=== PATIENT | female | born 1955 | race Caucasian/White ===

== ENCOUNTER 2018-12-24 22:55 | Inpatient (IN) ==
[2018-12-24] MEDS ORDERED: NS 1000 ML 1,000 ML ONE (23:06)
[2018-12-24] MEDS ORDERED: ASPIRIN PO ONE (23:29)
[2018-12-24] MEDS ORDERED: APRESOLINE TAB 25 MG PO ONE (23:29)
[2018-12-24] MEDS ORDERED: ASPIRIN ONE (23:30)
--- NOTE | 2018-12-24 23:30 | DR.GENAD ---
HPI Time Seen Time Seen by Provider: 12/24/18 22:57 PCP Primary Care Physician: Maren SIMPSON HPI Comment HPI Comment: 63 yo CF w/ pmh htn and tobacco abuse presents w/ CP onset 1700 today. Left sided, pressure like, radiating to left neck, constant, worse w/ rom of torso, non exertional, non pleuritic, a/w diffuse posterior headache and 2 episodes of nb/nb emesis. Denies visual/ speech changes, numbness/ weakness, diaphoresis, back pain, syncope, edema, orthopnea, castro. Complaint/Symptoms Chief Complaint:: PT STATES" MY BP WAS UP AND THEN I STARTED HURTING IN MY CHEST I FELT LIKE I WAS LOSING MY BREATH." Nurses notes reviewed Nurses Notes Review: Yes Source History Provided: Patient Mode of Arrival Mode of Arrival: Ambulatory Timing Onset of Chief Complaint: 12/24/18 Severity Severity: Moderate PMH PMH Past Medical History: Yes Past Medical History: Arthritis, Asthma, COPD and Hypertension Past Surgical History: Yes Surgical History: , Hysterectomy and Ortho Surgery Family History History of Family Medical Conditions: Yes Family Medical History: Cancer Social History Does patient currently use any type of tobacco product: Yes Have you used tobacco products in the last 12 months: Yes Type of Tobacco Use: Cigarettes Does any household member use tobacco: Yes Alcohol Use: Occasionally Do you use any recreational Drugs:: No Lives With: Family Lives Where: Home infectious screening In the last 2 months have you had wt loss of >10#?: NO Have you had fever, night sweats or hemotysis?: No Have you traveled outside the country in the last 6 months?: No Isolation: Standard ROS Review of Systems Constitutional: No Symptoms Reported Eyes: No Symptoms Reported ENTM: No Symptoms Reported Respiratoy: No Symptoms Reported Cardiovascular: Chest Pain; negative Edema, Palpitations and Syncope Gastrointestinal/Abdominal: No Symptoms Reported Genitourinary: No Symptoms Reported Neurological: No Symptoms Reported Musculoskeletal: No Symptoms Reported Integumentary: No Symptoms Reported Hematologic/Lymphatic: No Symptoms Reported Endocrine: No Symptoms Reported Psychiatric: No Symptoms Reported All Other Systems: Reviewed and Negative PE Vital Signs Vitals: Temperature 97.6 F Pulse Rate [Apical] 48 Pulse Rate 50 Respiratory Rate 14 Blood Pressure [Left Arm] 215/98 Blood Pressure 163/78 O2 Sat by Pulse Oximetry 98 General Limitations: No Limitations General Appearance: Alert, In No Apparent Distress and Other (SBP 212) Head Head Exam: Normal Inspection Eyes Eye exam: Normal Appearance ENT ENT Exam: Normal Exam External Ear Exam: Normal External Inspection TM/Canal Exam: Bilateral: Normal Nose Exam: Normal Nose Exam Mouth Exam: Normal Inspection Throat Exam: Normal Inspection Neck Neck Exam: Normal Inspection Chest Chest Inspection: Normal Inspection Respiratory Respiratory Exam: Normal Lung Sounds Bilat Respiratory Exam: Bilateral: Clear to Auscultation Cardiovascular Cardiovascular Exam: Regular Rate and Normal Rhythm Abdominal Exam Abdominal Exam: Normal Inspection, Normal Bowel Sounds and Soft Extremities Extremities Exam: Normal Inspection Back Back Exam: Normal Inspection Neurologic Neurological Exam: Alert and Oriented X3 Psychiatric Psychiatric Exam: Normal Affect and Normal Mood Skin Skin Exam: Warm, Dry, Intact and Normal Color MDM Additional Information Additional Information Obtained From: Old Records Differential Diagnosis Differential Diagnosis: htn emergency, [place], PE, cva, chf, pulmonary edema COURSE Treatment Treatment: 63 yo cf presented w/ CP and marked HTN. EKG w/ twi, isoelectric ST, Markedly HTN on arrival requiring two doses of hydralazine as well as a dose of nitro SL x 1 w/ improvement of chest pain. Labs unremarkable. CXR wnl. d/w Dr Ramos, hospitalist receptionist scheduler, whom agrees to admit for htn emergency. Education/Counseling Education/Counseling: Patient Educated On: Treatment, Diagnosis, Prognosis and Needs for Follow Up ROR Labs Reviewed Laboratory Results Reviewed?: Yes Result Diagrams: 12/24/18 23:11 12/24/18 23:11 Laboratory: WBC 8.1 X10^3/uL (3.6-10.0) 12/24/18 23:11 RBC 4.27 X10^6/uL (3.5-5.4) 12/24/18 23:11 Hgb 14.0 g/dL (12.0-16.0) 12/24/18 23:11 Hct 41.0 % (36.0-47.0) 12/24/18 23:11 MCV 96.1 fL (80.0-100.0) 12/24/18 23:11 MCH 32.8 pg (27.0-34.0) 12/24/18 23:11 MCHC 34.2 g/dL (33.0-35.0) 12/24/18 23:11 RDW 16.2 % (11.6-16.5) 12/24/18 23:11 Plt Count 258 X10^3/uL (150.0-450.0) 12/24/18 23:11 MPV 7.3 fL (7.4-11.0) L 12/24/18 23:11 Neut % (Auto) 75.5 % (42.0-75.0) H 12/24/18 23:11 Lymph % (Auto) 17.2 % (21.0-51.0) L 12/24/18 23:11 [place] % (Auto) 5.6 % (0.0-13.0) 12/24/18 23:11 Eos % (Auto) 1.2 % (0.9-2.9) 12/24/18 23:11 Baso % (Auto) 0.5 % (0.2-1.0) 12/24/18 23:11 Neut # (Auto) 6.1 x10^3/uL (2.2-4.8) H 12/24/18 23:11 Lymph # (Auto) 1.4 X10^3/uL (1.3-2.9) 12/24/18 23:11 [place] # (Auto) 0.5 x10^3/uL (0.3-0.8) 12/24/18 23:11 Eos # (Auto) 0.1 x10^3/uL (0.0-0.2) 12/24/18 23:11 Baso # (Auto) 0.0 X10^3/uL (0.0-0.1) 12/24/18 23:11 Absolute Nucleated RBC 0.1 /100WBC 12/24/18 23:11 Sodium 143 mmol/L (136-145) 12/24/18 23:11 Corrected Sodium TNP 12/24/18 23:11 Potassium 3.7 mmol/L (3.5-5.1) 12/24/18 23:11 Chloride 105 mmol/L (98-107) 12/24/18 23:11 Carbon Dioxide 25.3 mmol/L (21-32) 12/24/18 23:11 BUN 10 mg/dL (7-18) 12/24/18 23:11 Creatinine 0.93 mg/dL (0.55-1.02) 12/24/18 23:11 Est GFR (MDRD) Af Amer > 60 (>60) 12/24/18 23:11 Est GFR (MDRD) Non-Af > 60 (>60) 12/24/18 23:11 Glucose 106 mg/dL (65-99) H 12/24/18 23:11 Calcium 9.0 mg/dL (8.5-10.1) 12/24/18 23:11 Troponin I < 0.02 ng/mL (0-1.5) 12/25/18 03:00 XRAY XRAY Interpreted by: Radiologist XRAY Findings: CXR wnl EKG Rate: 47 [place]: Normal Rhythm: SB Block: None Hypertrophy: LVH ST: Normal (twi as leads) Opioid Opioid Risk Tool Age (Lei box if 16-45): No Total: 0 Total Score Risk Category: Low Risk Copyright: Costa MUÑOZ predicting aberrant behaviors Diagnosis Discharge Problem: Hypertensive emergency, Chest pain
[2018-12-24 23:36] LABS: BASOPHILS % (AUTO) 0.5 % (0.2-1.0); EOSINOPHILS # (AUTO) 0.1 x10^3/uL (0.0-0.2); EOSINOPHILS % (AUTO) 1.2 % (0.9-2.9); LYMPHOCYTES # (AUTO) 1.4 X10^3/uL (1.3-2.9); LYMPHOCYTES % (AUTO) 17.2 % (21.0-51.0); MEAN CORPUSCULAR HEMOGLOBIN 32.8 pg (27.0-34.0); MEAN CORPUSCULAR HGB CONC 34.2 g/dL (33.0-35.0); MEAN CORPUSCULAR VOLUME 96.1 fL (80.0-100.0); MEAN PLATELET VOLUME 7.3 fL (7.4-11.0); MONOCYTES # (AUTO) 0.5 x10^3/uL (0.3-0.8); MONOCYTES % (AUTO) 5.6 % (0.0-13.0); NEUTROPHILS # (AUTO) 6.1 x10^3/uL (2.2-4.8); NEUTROPHILS % (AUTO) 75.5 % (42.0-75.0); PLATELET COUNT 258 X10^3/uL (150.0-450.0); RED BLOOD COUNT 4.27 X10^6/uL (3.5-5.4); RED CELL DISTRIBUTION WIDTH 16.2 % (11.6-16.5); WHITE BLOOD COUNT 8.1 X10^3/uL (3.6-10.0)
[2018-12-24 23:45] LABS: BLOOD UREA NITROGEN 10 mg/dL (7-18); CARBON DIOXIDE 25.3 mmol/L (21-32); CHLORIDE 105 mmol/L (98-107); CREATININE 0.93 mg/dL (0.55-1.02); SODIUM 143 mmol/L (136-145); TROPONIN I < 0.02 ng/mL (0-1.5); eGFR NON BLACK RACES > 60 (>60)
[2018-12-25] MEDS ORDERED: NITROSTAT SL ONE (00:02)
[2018-12-25] MEDS ORDERED: ZOFRAN INJ 4 MG VIAL IVP ONE (00:02)
[2018-12-25] MEDS ORDERED: NITROSTAT ONE (00:04)
[2018-12-25] MEDS ORDERED: ZOFRAN INJ 4 MG VIAL ONE (00:04)
[2018-12-25] MEDS ORDERED: MORPHINE SULFATE INJ 4 MG IVP ONE (00:13)
[2018-12-25] MEDS ORDERED: MORPHINE SULFATE INJ 4 MG ONE (00:25)
[2018-12-25] MEDS ORDERED: APRESOLINE TAB 25 MG PO ONE (00:38)
[2018-12-25] MEDS ORDERED: APRESOLINE INJ 20 MG VIAL IVP ONE (00:49)
--- NOTE | 2018-12-25 00:49 | RAD ---
Chest, 1 view Indication: Chest pain, difficulty breathing Comparison: None Findings: The heart size is normal. There is mild bilateral hilar prominence, right greater than left. There are upper lobe predominant interstitial changes of the lungs, suggesting COPD. No dense infiltrates or pleural effusion. Impression: Bilateral hilar prominence may be vascular in etiology, but underlying mass or adenopathy cannot be excluded. This can be followed up with nonemergent contrasted CT of the chest. Suggestion of COPD, without acute abnormality. Reported By:
[2018-12-25] MEDS ORDERED: APRESOLINE INJ 20 MG VIAL ONE (00:51)
[2018-12-25] MEDS ORDERED: APRESOLINE INJ 20 MG VIAL IVP PRN (06:30)
[2018-12-25] MEDS ORDERED: NORVASC TAB 10 MG ONE (08:52)
[2018-12-25] MEDS: NORVASC TAB 10 MG PO SCH (08:54)
[2018-12-25] MEDS ORDERED: LOPRESSOR TAB 50 MG PO SCH (09:00)
[2018-12-25] MEDS ORDERED: TOPROL XL PO SCH (09:00)
[2018-12-25] MEDS ORDERED: ASPIRIN PO SCH (09:00)
[2018-12-25] MEDS ORDERED: VISTARIL PO PRN (10:05)
[2018-12-25 10:06] LABS: BILIRUBIN,URINE NEGATIVE (NEGATIVE); BLOOD/HEMOGLOBIN,URINE 1+ (NEGATIVE); GLUCOSE, URINE NEGATIVE (NEGATIVE); KETONES,URINE NEGATIVE (NEGATIVE); LEUKOCYTE ESTERASE ,URINE 2+ (NEGATIVE); NITRITES,URINE POSITIVE (NEGATIVE); PROTEIN,URINE NEGATIVE (NEGATIVE); UROBILINOGEN,URINE NORMAL (NORMAL)
[2018-12-25 10:10] LABS: APPEARANCE,URINE HAZY (CLEAR); COLOR,URINE YELLOW (YELLOW)
[2018-12-25 10:27] LABS: AMORPHOUS SEDIMENT,UR TRACE /HPF (NEGATIVE); BACTERIA,URINE 4+ /HPF (NEGATIVE); RBC,URINE 0-2 /HPF (0-3); SQUAMOUS EPITHELIAL CELL,UR MODERATE /HPF (NEGATIVE)
[2018-12-25] MEDS: LOPRESSOR TAB 50 MG PO SCH ×2 (10:33→21:08)
[2018-12-25] MEDS: NICOTINE PATCH TD SCH (10:33)
[2018-12-25 10:43] VITALS: BMI 21.6
--- NOTE | 2018-12-25 11:04 | DR.H&P ---
H&P History & Physical for Day of: H&P Date: 12/25/18 Chief Complaint Chief Complaint: SOB, chest pressure, N/V Allergies Allergies Allergy/AdvReac Type Severity Reaction Status Date / Time No Known Drug Allergies Allergy Verified 12/24/18 22:56 History of Present Illness History of Present Illness: Ms. Bernard is a 63y/o female with a PMH of uncontrolled HTN, COPD, tobacco use presented with a one day onset of SOB, chest pain associated with N/V. She reports she felt shortness of breath at rest that gradually got worse during the day. She reports dyspnea on exertion that has been going on for a while. She also had left side chest pain that radiated to the side of the chest wall. Her BP has been elevated at home for the past few days, SBP in 160-180s. She takes Metoprolol tartrate 50 mg BID, sees [facility]. She saw a cyanide furnace operator over a year ago and was told to have a stress test done but did not follow up. She reports using her mother's old inhalers for her COPD which has been worsening lately. Chronic smoker. Patient also appears to be anxious and reports stressors at home. She associates her symptoms to having a panic attack as she felt she couldn't breathe. ER work-up BP noted to be 215/98, received hydralazine 10 mg IV, 12.5mg and 25 mg PO Troponin x 3 (-) CXR: COPD changes, bilateral hilar prominence, consider CTA for further evaluation. Past Medical History Past Medical History: Arthritis, Asthma, COPD and Hypertension Past Surgical History Surgical History: REGISTERED PUBLIC SURVEYOR Surgery, Hysterectomy and Ortho Surgery Family History Family Medical History: [place], Coronary Artery Disease and Hypertension Social History Does patient currently use any type of tobacco product: Yes Have you used tobacco products in the last 12 months: Yes Type of Tobacco Use: Cigarettes How many years tobacco product used: 30 Does any household member use tobacco: No Alcohol Use: Occasionally Drug Use: None Prescription drug monitoring program results: PDMP was not reviewed Medications Home Medications: No Known Drug Allergies Allergy (Verified 12/24/18 22:56) CONTINUE taking the following medications metoprolol succinate 50 mg PO BID 12/25/18 [History] Labs Result Diagrams: 12/24/18 23:11 12/24/18 23:11 Labs: Laboratory WBC 8.1 X10^3/uL (3.6-10.0) 12/24/18 23:11 RBC 4.27 X10^6/uL (3.5-5.4) 12/24/18 23:11 Hgb 14.0 g/dL (12.0-16.0) 12/24/18 23:11 Hct 41.0 % (36.0-47.0) 12/24/18 23:11 MCV 96.1 fL (80.0-100.0) 12/24/18 23:11 MCH 32.8 pg (27.0-34.0) 12/24/18 23:11 MCHC 34.2 g/dL (33.0-35.0) 12/24/18 23:11 RDW 16.2 % (11.6-16.5) 12/24/18 23:11 Plt Count 258 X10^3/uL (150.0-450.0) 12/24/18 23:11 MPV 7.3 fL (7.4-11.0) L 12/24/18 23:11 Neut % (Auto) 75.5 % (42.0-75.0) H 12/24/18 23:11 Lymph % (Auto) 17.2 % (21.0-51.0) L 12/24/18 23:11 [place] % (Auto) 5.6 % (0.0-13.0) 12/24/18 23:11 Eos % (Auto) 1.2 % (0.9-2.9) 12/24/18 23:11 Baso % (Auto) 0.5 % (0.2-1.0) 12/24/18 23:11 Neut # (Auto) 6.1 x10^3/uL (2.2-4.8) H 12/24/18 23:11 Lymph # (Auto) 1.4 X10^3/uL (1.3-2.9) 12/24/18 23:11 [place] # (Auto) 0.5 x10^3/uL (0.3-0.8) 12/24/18 23:11 Eos # (Auto) 0.1 x10^3/uL (0.0-0.2) 12/24/18 23:11 Baso # (Auto) 0.0 X10^3/uL (0.0-0.1) 12/24/18 23:11 Absolute Nucleated RBC 0.1 /100WBC 12/24/18 23:11 Sodium 143 mmol/L (136-145) 12/24/18 23:11 Corrected Sodium TNP 12/24/18 23:11 Potassium 3.7 mmol/L (3.5-5.1) 12/24/18 23:11 Chloride 105 mmol/L (98-107) 12/24/18 23:11 Carbon Dioxide 25.3 mmol/L (21-32) 12/24/18 23:11 BUN 10 mg/dL (7-18) 12/24/18 23:11 Creatinine 0.93 mg/dL (0.55-1.02) 12/24/18 23:11 Est GFR (MDRD) Af Amer > 60 (>60) 12/24/18 23:11 Est GFR (MDRD) Non-Af > 60 (>60) 12/24/18 23:11 Glucose 106 mg/dL (65-99) H 12/24/18 23:11 Calcium 9.0 mg/dL (8.5-10.1) 12/24/18 23:11 Troponin I < 0.02 ng/mL (0-1.5) 12/25/18 06:38 Specimen Type Clean catch urine 12/25/18 09:44 Urine Color Yellow (YELLOW) 12/25/18 09:44 Urine Appearance Hazy (CLEAR) 12/25/18 09:44 Urine pH 6.0 (5.0 - 8.0) 12/25/18 09:44 Ur Specific [place] 1.020 (1.000-1.030) 12/25/18 09:44 Urine Protein Negative (NEGATIVE) 12/25/18 09:44 Urine Glucose (UA) Negative (NEGATIVE) 12/25/18 09:44 Urine Ketones Negative (NEGATIVE) 12/25/18 09:44 Urine Occult Blood 1+ (NEGATIVE) 12/25/18 09:44 Urine Nitrite Positive (NEGATIVE) 12/25/18 09:44 Urine Bilirubin Negative (NEGATIVE) 12/25/18 09:44 Urine Urobilinogen Normal (NORMAL) 12/25/18 09:44 Ur Leukocyte Esterase 2+ (NEGATIVE) 12/25/18 09:44 Urine RBC 0-2 /HPF (0-3) 12/25/18 09:44 Urine WBC 20-30 /HPF (0-5) A 12/25/18 09:44 Ur Squamous Epith Cells Moderate /HPF (NEGATIVE) 12/25/18 09:44 Amorphous Sediment Trace /HPF (NEGATIVE) 12/25/18 09:44 Urine Bacteria 4+ /HPF (NEGATIVE) 12/25/18 09:44 Ur Culture Indicated? Yes/culture set up 12/25/18 09:44 Review of Systems Constitutional: denies Fever, Chills and Weakness Eyes: No Symptoms Reported ENT: No Symptoms Reported Respiratory: Shortness of Breath and SOB with Excertion; denies Cough and Hemoptysis Cardiovascular: Chest Pain and Light Headedness; denies Edema Gastrointestinal: Nausea and Vomiting; denies Abdominal Pain and Diarrhea Genitourinary: No Symptoms Reported Musculoskeletal: Neck Pain Skin: No Symptoms Reported Neurological: denies Weakness and Numbness Physical Exam Vital Signs: Temperature 98.5 F Pulse Rate [Left Brachial] 54 Pulse Rate [Apical] 55 Pulse Rate 50 Respiratory Rate 20 Blood Pressure [Left Arm] 154/73 Blood Pressure 163/78 O2 Sat by Pulse Oximetry 95 Oriented: Normal Eyes: Normal Respiratory: Diminished Throughout Cardiovascular: Normal and Bradycardia Auscultation: Bowel Sounds: Normal Palpation: Normal Tenderness: Normal Skin: Normal Musculoskeletal: Normal Psychiatric: Normal Mood Description: Calm Affect: Anxious Speech Pattern: Clear and Appropriate Assessment/Plan (1) Hypertensive emergency: Status: Acute Plan: BP on admission: 215/98, last BP: 154/73 HR: 54 Will resume metoprolol tartrate at 25 mg BID due to bradycardia Add Norvasc 10 mg qd troponins x 3 (-), will check TSH, Lipid panel (2) Tobacco abuse: Status: Acute Plan: discussed cessation, nicotine patch (3) COPD (chronic obstructive pulmonary disease): Status: Acute Plan: no acute exacerbation, no wheezing on exam CXR: consistent with COPD changes, b/l hilar prominence also noted. Recommend non-emergent CTA for further evaluation. Will order for tomorrow morning. Duonebs prn. Flu and pna vaccinations. (4) Anxiety: Status: Acute Plan: will add Vistaril prn
[2018-12-25] MEDS ORDERED: DUONEB 0.5 MG/3 MG NEB PRN (11:05)
--- NOTE | 2018-12-25 15:22 | CT ---
HISTORY: Bilateral hilar prominence Study: CT chest with contrast Comparison: Chest radiograph dated 12/25/2018 Technique: Multiple axial images of the chest were obtained from the thoracic inlet to the upper abdomen after the administration of IV contrast. Findings: The mediastinum does not demonstrate significant pathological lymphadenopathy. No significant hilar adenopathy can be identified. No hilar mass can be observed. The findings on radiograph for secondary to overlapping vascular structures. There is no paracardial effusion observed. The thoracic aorta is normal in its contour without evidence for aneurysmal dilatation. The central pulmonary arterial system does not demonstrate central filling defects to suggest pulmonary emboli. Evaluation of the lung parenchyma fails to demonstrate focal consolidation or effusion. No pulmonary nodule or mass can be identified. The bony thorax is unremarkable in its appearance. The visualized portions of the upper abdomen are grossly unremarkable. IMPRESSION: Essentially unremarkable evaluation of the chest with contrast. No hilar mass or lymphadenopathy can be observed. Reported By:
[2018-12-25] MEDS ORDERED: AFLURIA II4 or FLUARIX II4 IM ONE (16:00)
[2018-12-25] MEDS ORDERED: PREVNAR 13 IM ONE (16:00)
[2018-12-25] MEDS: TYLENOL 325 MG TAB PO PRN (21:08)
[2018-12-26 05:17] LABS: BASOPHILS % (AUTO) 0.4 % (0.2-1.0); EOSINOPHILS # (AUTO) 0.1 x10^3/uL (0.0-0.2); EOSINOPHILS % (AUTO) 1.7 % (0.9-2.9); HEMATOCRIT 38.3 % (36.0-47.0); HEMOGLOBIN 12.8 g/dL (12.0-16.0); LYMPHOCYTES # (AUTO) 1.4 X10^3/uL (1.3-2.9); LYMPHOCYTES % (AUTO) 22.8 % (21.0-51.0); MEAN CORPUSCULAR HEMOGLOBIN 32.3 pg (27.0-34.0); MEAN CORPUSCULAR HGB CONC 33.5 g/dL (33.0-35.0); MEAN CORPUSCULAR VOLUME 96.6 fL (80.0-100.0); MEAN PLATELET VOLUME 7.6 fL (7.4-11.0); MONOCYTES # (AUTO) 0.6 x10^3/uL (0.3-0.8); MONOCYTES % (AUTO) 8.8 % (0.0-13.0); NEUTROPHILS # (AUTO) 4.1 x10^3/uL (2.2-4.8); NEUTROPHILS % (AUTO) 66.3 % (42.0-75.0); PLATELET COUNT 218 X10^3/uL (150.0-450.0); RED BLOOD COUNT 3.97 X10^6/uL (3.5-5.4); RED CELL DISTRIBUTION WIDTH 16.6 % (11.6-16.5); WHITE BLOOD COUNT 6.2 X10^3/uL (3.6-10.0)
[2018-12-26 05:23] LABS: BLOOD UREA NITROGEN 9 mg/dL (7-18); CALCIUM 8.6 mg/dL (8.5-10.1); CARBON DIOXIDE 27.2 mmol/L (21-32); CHLORIDE 105 mmol/L (98-107); CHOL/HDL RATIO 3.3 (0.0-5.0); CHOLESTEROL 207 mg/dL (0-200); CREATININE 0.82 mg/dL (0.55-1.02); HDL CHOLESTEROL 62 mg/dL (40-60); SODIUM 141 mmol/L (136-145); TRIGLYCERIDES 126 mg/dL (0-150); eGFR NON BLACK RACES > 60 (>60)
[2018-12-26] MEDS: TYLENOL 325 MG TAB PO PRN ×2 (05:43→22:00)
[2018-12-26] MEDS: NORVASC TAB 10 MG PO SCH (08:37)
[2018-12-26] MEDS: NICOTINE PATCH TD SCH (08:37)
--- NOTE | 2018-12-26 08:57 | PCM.PROG ---
Progress Note Progress Note for Day of Date of Exam: 12/26/18 Subjective Subjective: Patient seen at bedside, reports headache and some chest tightness. Last BP this AM was 175/77. She denies N/V/D or abdominal pain, has been eating well. She states dizziness is slightly better. She states a few weeks ago she had SOB with dizziness. There seems to be a component of anxiety with her symptoms. Past Medical Family Social History Past Med/Fam/Surg Hx: No changes since H&P Allergies: Allergies No Known Drug Allergies Allergy (Verified 12/24/18 22:56) Review of Systems ROS: No change since H&P Vital Signs and I&O's Vital Signs: Temperature 98.5 F Pulse Rate [Left Brachial] 51 Pulse Rate [Apical] 55 Pulse Rate 50 Respiratory Rate 18 Blood Pressure [Left Arm] 175/77 Blood Pressure 163/78 O2 Sat by Pulse Oximetry 98 Intake and Output: Intake & Output 12/23/18 12/24/18 12/25/18 12/26/18 23:59 23:59 23:59 23:59 Intake Total 1790 / 1790 240 / 240 Balance 1790 / 1790 240 / 240 Physical Exam Oriented: Normal Eyes: Normal Respiratory: Normal Cardiovascular: Normal and Bradycardia Auscultation: Bowel Sounds: Normal Tenderness: Normal Skin: Normal Musculoskeletal: Normal Psychiatric: Anxiety Mood Description: Calm Affect: Anxious Speech Pattern: Clear and Appropriate Laboratory and Diagnostics Result Diagrams: 12/26/18 04:45 12/26/18 04:45 Labs: Laboratory WBC 6.2 X10^3/uL (3.6-10.0) 12/26/18 04:45 RBC 3.97 X10^6/uL (3.5-5.4) 12/26/18 04:45 Hgb 12.8 g/dL (12.0-16.0) 12/26/18 04:45 Hct 38.3 % (36.0-47.0) 12/26/18 04:45 MCV 96.6 fL (80.0-100.0) 12/26/18 04:45 MCH 32.3 pg (27.0-34.0) 12/26/18 04:45 MCHC 33.5 g/dL (33.0-35.0) 12/26/18 04:45 RDW 16.6 % (11.6-16.5) H 12/26/18 04:45 Plt Count 218 X10^3/uL (150.0-450.0) 12/26/18 04:45 MPV 7.6 fL (7.4-11.0) 12/26/18 04:45 Neut % (Auto) 66.3 % (42.0-75.0) 12/26/18 04:45 Lymph % (Auto) 22.8 % (21.0-51.0) 12/26/18 04:45 [place] % (Auto) 8.8 % (0.0-13.0) 12/26/18 04:45 Eos % (Auto) 1.7 % (0.9-2.9) 12/26/18 04:45 Baso % (Auto) 0.4 % (0.2-1.0) 12/26/18 04:45 Neut # (Auto) 4.1 x10^3/uL (2.2-4.8) 12/26/18 04:45 Lymph # (Auto) 1.4 X10^3/uL (1.3-2.9) 12/26/18 04:45 [place] # (Auto) 0.6 x10^3/uL (0.3-0.8) 12/26/18 04:45 Eos # (Auto) 0.1 x10^3/uL (0.0-0.2) 12/26/18 04:45 Baso # (Auto) 0.0 X10^3/uL (0.0-0.1) 12/26/18 04:45 Absolute Nucleated RBC 0.1 /100WBC 12/26/18 04:45 Sodium 141 mmol/L (136-145) 12/26/18 04:45 Corrected Sodium TNP 12/26/18 04:45 Potassium 3.9 mmol/L (3.5-5.1) 12/26/18 04:45 Chloride 105 mmol/L (98-107) 12/26/18 04:45 Carbon Dioxide 27.2 mmol/L (21-32) 12/26/18 04:45 BUN 9 mg/dL (7-18) 12/26/18 04:45 Creatinine 0.82 mg/dL (0.55-1.02) 12/26/18 04:45 Est GFR (MDRD) Af Amer > 60 (>60) 12/26/18 04:45 Est GFR (MDRD) Non-Af > 60 (>60) 12/26/18 04:45 Glucose 93 mg/dL (65-99) 12/26/18 04:45 Calcium 8.6 mg/dL (8.5-10.1) 12/26/18 04:45 Troponin I < 0.02 ng/mL (0-1.5) 12/25/18 06:38 Triglycerides 126 mg/dL (0-150) 12/26/18 04:45 Cholesterol 207 mg/dL (0-200) H 12/26/18 04:45 LDL Cholesterol, Calc 120 mg/dL (0-100) H 12/26/18 04:45 HDL Cholesterol 62 mg/dL (40-60) H 12/26/18 04:45 Cholesterol/HDL Ratio 3.3 (0.0-5.0) 12/26/18 04:45 TSH 3rd Generation 4.664 uIU/mL (0.358-3.74) H 12/25/18 06:38 Specimen Type Clean catch urine 12/25/18 09:44 Urine Color Yellow (YELLOW) 12/25/18 09:44 Urine Appearance Hazy (CLEAR) 12/25/18 09:44 Urine pH 6.0 (5.0 - 8.0) 12/25/18 09:44 Ur Specific [place] 1.020 (1.000-1.030) 12/25/18 09:44 Urine Protein Negative (NEGATIVE) 12/25/18 09:44 Urine Glucose (UA) Negative (NEGATIVE) 12/25/18 09:44 Urine Ketones Negative (NEGATIVE) 12/25/18 09:44 Urine Occult Blood 1+ (NEGATIVE) 12/25/18 09:44 Urine Nitrite Positive (NEGATIVE) 12/25/18 09:44 Urine Bilirubin Negative (NEGATIVE) 12/25/18 09:44 Urine Urobilinogen Normal (NORMAL) 12/25/18 09:44 Ur Leukocyte Esterase 2+ (NEGATIVE) 12/25/18 09:44 Urine RBC 0-2 /HPF (0-3) 12/25/18 09:44 Urine WBC 20-30 /HPF (0-5) A 12/25/18 09:44 Ur Squamous Epith Cells Moderate /HPF (NEGATIVE) 12/25/18 09:44 Amorphous Sediment Trace /HPF (NEGATIVE) 12/25/18 09:44 Urine Bacteria 4+ /HPF (NEGATIVE) 12/25/18 09:44 Ur Culture Indicated? Yes/culture set up 12/25/18 09:44 Plan (1) Hypertensive emergency: Status: Acute Plan: BP on admission: 215/98, last BP: 175/77 HR: 51 Continue Norvasc 10 mg qd troponins x 3 (-), TSH slightly elevated Will DC metoprolol due to hx of COPD and bradycardia Add lisinopril 10 mg. Order echo to evaluate any valve abnormalities (2) Tobacco abuse: Status: Acute Plan: discussed cessation, nicotine patch (3) COPD (chronic obstructive pulmonary disease): Status: Acute Plan: no acute exacerbation, no wheezing on exam CXR: consistent with COPD changes, b/l hilar prominence also noted. Recommend non-emergent CT chest: negative for any mass or LAD. Duonebs prn. Flu and pna vaccinations. (4) Anxiety: Status: Acute Plan: BP slightly elevated with Vistaril, will add low dose Ativan 0.5 mg BID prn (5) HLD (hyperlipidemia): Status: Acute Plan: Total cholesterol: 207 LDL: 120 HDL: 65 ASCVD 12.8% Will start Lipitor 40 mg qday
[2018-12-26] MEDS ORDERED: LOPRESSOR TAB 50 MG PO SCH ×2 (09:00)
[2018-12-26] MEDS ORDERED: ASPIRIN PO SCH (09:00)
[2018-12-26] MEDS ORDERED: ASPIRIN EC 81 MG PO ONE (09:24)
[2018-12-26] MEDS: ZESTRIL TAB 10 MG PO SCH (09:29)
[2018-12-26] MEDS: ASPIRIN EC 81 MG PO SCH (09:32)
[2018-12-26] MEDS: ATIVAN TAB 0.5 MG PO PRN (15:38)
[2018-12-26] MEDS: LIPITOR TAB 40 MG PO SCH (21:30)
[2018-12-27] MEDS: TYLENOL 325 MG TAB PO PRN (04:49)
[2018-12-27] MEDS: ATIVAN TAB 0.5 MG PO PRN (04:52)
[2018-12-27 05:19] LABS: BASOPHILS % (AUTO) 0.7 % (0.2-1.0); EOSINOPHILS # (AUTO) 0.1 x10^3/uL (0.0-0.2); EOSINOPHILS % (AUTO) 2.8 % (0.9-2.9); HEMATOCRIT 40.9 % (36.0-47.0); HEMOGLOBIN 13.8 g/dL (12.0-16.0); LYMPHOCYTES # (AUTO) 1.2 X10^3/uL (1.3-2.9); LYMPHOCYTES % (AUTO) 26.6 % (21.0-51.0); MEAN CORPUSCULAR HEMOGLOBIN 32.6 pg (27.0-34.0); MEAN CORPUSCULAR HGB CONC 33.7 g/dL (33.0-35.0); MEAN CORPUSCULAR VOLUME 96.8 fL (80.0-100.0); MEAN PLATELET VOLUME 7.1 fL (7.4-11.0); MONOCYTES # (AUTO) 0.5 x10^3/uL (0.3-0.8); MONOCYTES % (AUTO) 11.6 % (0.0-13.0); NEUTROPHILS # (AUTO) 2.5 x10^3/uL (2.2-4.8); NEUTROPHILS % (AUTO) 58.3 % (42.0-75.0); PLATELET COUNT 205 X10^3/uL (150.0-450.0); RED BLOOD COUNT 4.22 X10^6/uL (3.5-5.4); RED CELL DISTRIBUTION WIDTH 16.8 % (11.6-16.5); WHITE BLOOD COUNT 4.3 X10^3/uL (3.6-10.0)
[2018-12-27 05:27] LABS: BLOOD UREA NITROGEN 11 mg/dL (7-18); CALCIUM 9.1 mg/dL (8.5-10.1); CARBON DIOXIDE 30.8 mmol/L (21-32); CHLORIDE 104 mmol/L (98-107); COR NA(FOR HYPERGLY) 142 mmol/L (136-145); CREATININE 0.69 mg/dL (0.55-1.02); SODIUM 141 mmol/L (136-145); eGFR NON BLACK RACES > 60 (>60)
[2018-12-27] MEDS ORDERED: MIRALAX POWDER (1 DOSE 17 G) PO STA (08:18)
[2018-12-27] MEDS: ZESTRIL TAB 10 MG PO SCH (08:24)
[2018-12-27] MEDS: NORVASC TAB 10 MG PO SCH (08:24)
[2018-12-27] MEDS: ASPIRIN EC 81 MG PO SCH (08:24)
[2018-12-27] MEDS: NICOTINE PATCH TD SCH (08:25)
[2018-12-27] MEDS: LIPITOR TAB 40 MG PO SCH (08:25)
[2018-12-27] MEDS ORDERED: PEPCID TAB 20 MG PO SCH (09:00)
--- NOTE | 2018-12-27 09:20 | W.DIS.FURT ---
Summary of Discharge Discharge Summary of Date Date of Exam: 12/27/18 Admission Date Date of Admission: 12/24/18 Admission Diagnosis Patient Problems (Updated 12/26/18 @ 09:51 by Judy Peñaloza) Hypertensive emergency (Acute) I16.1 Chest pain (Acute) R07.9 HLD (hyperlipidemia) (Chronic) E78.5 Anxiety (Chronic) F41.9 Tobacco abuse (Chronic) Z72.0 COPD (chronic obstructive pulmonary disease) (Chronic) J44.9 Hospital Course: Ms. Bernard is a 63y/o female with a PMH of uncontrolled HTN, tobacco use and GERD presented with chest pressure, dizzines, nausea and vomiting. She reports having elevated BP at home, SBP in 160-180s. On admission, her SBP was in the 200s. She received multiple doses of hydralazine and clonidine. Troponins and EKG were negative for any acute changes. CXR showed bilateral hilar prominence which was further evaluated with CT-chest which was unremarkable. Due to bradycardia, her metoprolol was stopped. She was started on amlodipine and lisinopril to control her BP. Echo was done which showed EF 68% with mild mitral regurgitation and mild pulmonary hypertension. Patient has a lot of anxiety and that was affecting her blood pressure. She was started on Ativan 0.5 mg BID prn and this helped her stay calm and stabilized her blood pressure. She was also started on asa 81 mg and lipitor 40 mg. Patient was stable for discharge. She will follow at our clinic in 1 week. Vital Signs: Vital Signs (72 hours) 12/24/18 23:00 12/24/18 23:20 12/24/18 23:31 Temperature 97.6 F Pulse Rate 52 L 50 L Pulse Rate [Apical] 48 L Pulse Rate [Left Brachial] Respiratory Rate 18 20 23 Blood Pressure 222/100 195/87 Blood Pressure [Left Arm] 215/98 O2 Sat by Pulse Oximetry 98 12/24/18 23:45 12/25/18 00:00 12/25/18 00:02 Temperature Pulse Rate 45 L 49 L 50 L Pulse Rate [Apical] Pulse Rate [Left Brachial] Respiratory Rate 26 H 25 H 23 Blood Pressure 190/87 185/86 186/90 Blood Pressure [Left Arm] O2 Sat by Pulse Oximetry 12/25/18 00:08 12/25/18 00:13 12/25/18 00:15 Temperature Pulse Rate 54 L 63 Pulse Rate [Apical] Pulse Rate [Left Brachial] Respiratory Rate 22 20 27 H Blood Pressure 169/83 177/88 Blood Pressure [Left Arm] O2 Sat by Pulse Oximetry 12/25/18 00:32 12/25/18 00:35 12/25/18 00:36 Temperature Pulse Rate 53 L 53 L Pulse Rate [Apical] Pulse Rate [Left Brachial] Respiratory Rate 20 17 22 Blood Pressure 222/96 219/98 Blood Pressure [Left Arm] O2 Sat by Pulse Oximetry 12/25/18 00:39 12/25/18 01:00 12/25/18 01:02 Temperature Pulse Rate 53 L 58 L Pulse Rate [Apical] Pulse Rate [Left Brachial] Respiratory Rate 16 25 H 19 Blood Pressure Blood Pressure [Left Arm] O2 Sat by Pulse Oximetry 12/25/18 01:16 12/25/18 01:30 12/25/18 02:07 Temperature Pulse Rate 59 L 53 L Pulse Rate [Apical] Pulse Rate [Left Brachial] Respiratory Rate 17 32 H 32 H Blood Pressure 148/65 Blood Pressure [Left Arm] O2 Sat by Pulse Oximetry 12/25/18 02:30 12/25/18 03:00 12/25/18 03:29 Temperature Pulse Rate 54 L 52 L 56 L Pulse Rate [Apical] Pulse Rate [Left Brachial] Respiratory Rate 15 20 18 Blood Pressure 151/67 Blood Pressure [Left Arm] O2 Sat by Pulse Oximetry 12/25/18 03:30 12/25/18 04:00 12/25/18 04:34 Temperature Pulse Rate 55 L 52 L 53 L Pulse Rate [Apical] Pulse Rate [Left Brachial] Respiratory Rate 14 14 16 Blood Pressure 163/78 Blood Pressure [Left Arm] O2 Sat by Pulse Oximetry 12/25/18 05:00 12/25/18 05:30 12/25/18 06:00 Temperature Pulse Rate 51 L 49 L 50 L Pulse Rate [Apical] Pulse Rate [Left Brachial] Respiratory Rate 13 12 14 Blood Pressure Blood Pressure [Left Arm] O2 Sat by Pulse Oximetry 12/25/18 07:16 12/25/18 08:15 12/25/18 12:00 Temperature 98.5 F 98.2 F Pulse Rate Pulse Rate [Apical] 55 L Pulse Rate [Left Brachial] 54 L 46 L Respiratory Rate 17 20 18 Blood Pressure Blood Pressure [Left Arm] 150/68 154/73 134/62 O2 Sat by Pulse Oximetry 95 95 12/25/18 16:00 12/25/18 20:00 12/25/18 20:34 Temperature 98.5 F 98.9 F Pulse Rate 50 L Pulse Rate [Apical] Pulse Rate [Left Brachial] 49 L 55 L Respiratory Rate 20 20 Blood Pressure Blood Pressure [Left Arm] 126/63 146/63 O2 Sat by Pulse Oximetry 95 97 95 12/25/18 21:08 12/25/18 22:08 12/26/18 00:00 Temperature 98.4 F Pulse Rate Pulse Rate [Apical] Pulse Rate [Left Brachial] 49 L Respiratory Rate 18 18 18 Blood Pressure Blood Pressure [Left Arm] 185/80 O2 Sat by Pulse Oximetry 97 12/26/18 04:00 12/26/18 05:43 12/26/18 06:43 Temperature 98.3 F Pulse Rate Pulse Rate [Apical] Pulse Rate [Left Brachial] 43 L Respiratory Rate 18 18 18 Blood Pressure Blood Pressure [Left Arm] 140/65 O2 Sat by Pulse Oximetry 97 12/26/18 07:58 12/26/18 11:39 12/26/18 15:54 Temperature 98.5 F 98.1 F 98.3 F Pulse Rate Pulse Rate [Apical] Pulse Rate [Left Brachial] 51 L 55 L 60 Respiratory Rate 18 20 18 Blood Pressure Blood Pressure [Left Arm] 175/77 159/69 159/69 O2 Sat by Pulse Oximetry 98 97 94 L 12/26/18 20:00 12/26/18 22:00 12/26/18 23:00 Temperature 98.4 F Pulse Rate Pulse Rate [Apical] Pulse Rate [Left Brachial] 58 L Respiratory Rate 20 20 18 Blood Pressure Blood Pressure [Left Arm] 118/64 O2 Sat by Pulse Oximetry 98 12/26/18 23:30 12/27/18 04:00 12/27/18 04:49 Temperature 98.6 F 98.6 F Pulse Rate Pulse Rate [Apical] Pulse Rate [Left Brachial] 53 L 59 L Respiratory Rate 18 18 18 Blood Pressure Blood Pressure [Left Arm] 114/64 121/66 O2 Sat by Pulse Oximetry 96 95 12/27/18 05:49 Temperature Pulse Rate Pulse Rate [Apical] Pulse Rate [Left Brachial] Respiratory Rate 18 Blood Pressure Blood Pressure [Left Arm] O2 Sat by Pulse Oximetry Labs: Laboratory Last Values WBC 4.3 X10^3/uL (3.6-10.0) 12/27/18 04:53 RBC 4.22 X10^6/uL (3.5-5.4) 12/27/18 04:53 Hgb 13.8 g/dL (12.0-16.0) 12/27/18 04:53 Hct 40.9 % (36.0-47.0) 12/27/18 04:53 MCV 96.8 fL (80.0-100.0) 12/27/18 04:53 MCH 32.6 pg (27.0-34.0) 12/27/18 04:53 MCHC 33.7 g/dL (33.0-35.0) 12/27/18 04:53 RDW 16.8 % (11.6-16.5) H 12/27/18 04:53 Plt Count 205 X10^3/uL (150.0-450.0) 12/27/18 04:53 MPV 7.1 fL (7.4-11.0) L 12/27/18 04:53 Neut % (Auto) 58.3 % (42.0-75.0) 12/27/18 04:53 Lymph % (Auto) 26.6 % (21.0-51.0) 12/27/18 04:53 Williams % (Auto) 11.6 % (0.0-13.0) 12/27/18 04:53 Eos % (Auto) 2.8 % (0.9-2.9) 12/27/18 04:53 Baso % (Auto) 0.7 % (0.2-1.0) 12/27/18 04:53 Neut # (Auto) 2.5 x10^3/uL (2.2-4.8) 12/27/18 04:53 Lymph # (Auto) 1.2 X10^3/uL (1.3-2.9) L 12/27/18 04:53 Williams # (Auto) 0.5 x10^3/uL (0.3-0.8) 12/27/18 04:53 Eos # (Auto) 0.1 x10^3/uL (0.0-0.2) 12/27/18 04:53 Baso # (Auto) 0.0 X10^3/uL (0.0-0.1) 12/27/18 04:53 Absolute Nucleated RBC 0.1 /100WBC 12/27/18 04:53 Sodium 141 mmol/L (136-145) 12/27/18 04:53 Corrected Sodium 142 mmol/L (136-145) 12/27/18 04:53 Potassium 4.2 mmol/L (3.5-5.1) 12/27/18 04:53 Chloride 104 mmol/L (98-107) 12/27/18 04:53 Carbon Dioxide 30.8 mmol/L (21-32) 12/27/18 04:53 BUN 11 mg/dL (7-18) 12/27/18 04:53 Creatinine 0.69 mg/dL (0.55-1.02) 12/27/18 04:53 Est GFR (MDRD) Af Amer > 60 (>60) 12/27/18 04:53 Est GFR (MDRD) Non-Af > 60 (>60) 12/27/18 04:53 Glucose 121 mg/dL (65-99) H 12/27/18 04:53 Calcium 9.1 mg/dL (8.5-10.1) 12/27/18 04:53 Troponin I < 0.02 ng/mL (0-1.5) 12/25/18 06:38 Triglycerides 126 mg/dL (0-150) 12/26/18 04:45 Cholesterol 207 mg/dL (0-200) H 12/26/18 04:45 LDL Cholesterol, Calc 120 mg/dL (0-100) H 12/26/18 04:45 HDL Cholesterol 62 mg/dL (40-60) H 12/26/18 04:45 Cholesterol/HDL Ratio 3.3 (0.0-5.0) 12/26/18 04:45 TSH 3rd Generation 4.664 uIU/mL (0.358-3.74) H 12/25/18 06:38 Specimen Type Clean catch urine 12/25/18 09:44 Urine Color Yellow (YELLOW) 12/25/18 09:44 Urine Appearance Hazy (CLEAR) 12/25/18 09:44 Urine pH 6.0 (5.0 - 8.0) 12/25/18 09:44 Ur Specific [place] 1.020 (1.000-1.030) 12/25/18 09:44 Urine Protein Negative (NEGATIVE) 12/25/18 09:44 Urine Glucose (UA) Negative (NEGATIVE) 12/25/18 09:44 Urine Ketones Negative (NEGATIVE) 12/25/18 09:44 Urine Occult Blood 1+ (NEGATIVE) 12/25/18 09:44 Urine Nitrite Positive (NEGATIVE) 12/25/18 09:44 Urine Bilirubin Negative (NEGATIVE) 12/25/18 09:44 Urine Urobilinogen Normal (NORMAL) 12/25/18 09:44 Ur Leukocyte Esterase 2+ (NEGATIVE) 12/25/18 09:44 Urine RBC 0-2 /HPF (0-3) 12/25/18 09:44 Urine WBC 20-30 /HPF (0-5) A 12/25/18 09:44 Ur Squamous Epith Cells Moderate /HPF (NEGATIVE) 12/25/18 09:44 Amorphous Sediment Trace /HPF (NEGATIVE) 12/25/18 09:44 Urine Bacteria 4+ /HPF (NEGATIVE) 12/25/18 09:44 Ur Culture Indicated? Yes/culture set up 12/25/18 09:44 Reason For Visit: HTN EMERGENCY, CHEST PAIN Discharge Date Discharge Date: 12/27/18 Discharge Diagnosis All Active Problems (Updated 12/26/18 @ 09:51 by Judy Peñaloza) Hypertensive emergency (Acute) Chest pain (Acute) HLD (hyperlipidemia) (Chronic) Anxiety (Chronic) Tobacco abuse (Chronic) COPD (chronic obstructive pulmonary disease) (Chronic) Plan of Treatment: Continue with present treatment and follow up plan. Pt is to keep follow up appointment as instructed and take medications as ordered. Discharge Medications Discharge Medications: No Known Drug Allergies Allergy (Verified 12/24/18 22:56) New Prescriptions amlodipine 10 mg PO DAILY 30 Days #30 tab 12/27/18 [Rx] aspirin 81 mg PO DAILY 30 Days #30 tab 12/27/18 [Rx] atorvastatin 40 mg PO DAILY 30 Days #30 tab 12/27/18 [Rx] famotidine 20 mg PO BID 30 Days #60 tab 12/27/18 [Rx] lisinopril 10 mg PO DAILY 30 Days #30 tab 12/27/18 [Rx] lorazepam 0.5 mg PO BID PRN 5 Days #10 tab 12/27/18 [Rx] Follow up and Referral Follow Up: 1 Week (PCP) Discharge Disposition Discharge Disposition: Home
[2018-12-27 09:59] VITALS: BP 155/76
== END 2018-12-27 14:15 | disposition home or self-care (01) | DRG 305 ==
LOC: ER 22:55 → MED/SURG 12-25 06:49
PROVIDERS: ADMIT Family Medicine; ATTEND Family Medicine
DX: R06.02 Shortness of breath; E78.5 Hyperlipidemia, unspecified; I16.1 Hypertensive emergency; R11.2 Nausea with vomiting, unspecified; B96.29 Other Escherichia coli [E. coli] as the cause of diseases classified elsewhere; J44.9 Chronic obstructive pulmonary disease, unspecified; F41.8 Other specified anxiety disorders; R94.31 Abnormal electrocardiogram [ECG] [EKG]; R07.89 Other chest pain; Z23 Encounter for immunization; Z79.899 Other long term (current) drug therapy
CPT/HCPCS: 36415; 71010; 71045; 71260; 80048; 80061; 81001; 84443; 84484; 85025; 87086; 87088; 87186; 90674; 90686; 93005; 93306; 94640; 96365; 96374; 96375; 99284; A4216; A4222; Q0177; 90670; J0360; J2270; J2405; J3490; J7030; J7620